=== PATIENT | female | born 1950 | race Caucasian/White ===

== ENCOUNTER 2016-09-30 11:20 | Emergency (ER) | payer OTHER ==
--- NOTE | 2016-09-30 11:25 | EDPHY ---
H & P Constitutional: Initial Vital Signs Heart Rate 105 H 09/30/16 12:00 Respiratory Rate 18 09/30/16 12:00 Blood Pressure 176/130 H 09/30/16 12:00 O2 Sat (%) 90 L 09/30/16 12:00 O2 Delivery Mode Nasal Cannula O2 (L/minute) 2 Allergies/Adverse Reactions: Sulfa (Sulfonamide Antibiotics) Allergy (Verified 09/30/16 12:03) Medical Decision Making ED Course/Re-evaluation: CHIEF COMPLAINT: Right arm pain HISTORY OF PRESENT ILLNESS: 66-year-old female fell on the ice this morning landed on her right upper arm. She has severe upper arm pain. Her shoulder hurts in her elbow hurts also. She denies hitting anything else or any other injuries. She got some intranasal fentanyl in route which did not seem to relieve her pain very much. She is in a sling. REVIEW OF SYSTEMS: A 10 point review of systems was performed and is negative with the exception of the elements mentioned in the history of present illness. PHYSICAL EXAM: HR, BP, O2 Sat, RR. Temp noted General Appearance: Alert, well hydrated, appropriate, and non-toxic appearing. Head: Atraumatic without scalp tenderness or obvious injury Eyes: Pupils equal, round, reactive to light and accommodation, EOMI, no trauma , no injection. Ears: Clear bilaterally, no perforation, normal landmarks Nose: Atraumatic, no rhinorrhea, clear. Throat: There is no erythema or exudates, no lesions, normal tonsils, mucus membranes moist. Neck: Supple, 2+ carotid upstroke, nontender, no lymphadenopathy. Respiratory: No retractions, no distress, no wheezes, and no accessory muscle use. Lungs are clear to auscultation bilaterally. Cardiovascular: Regular rate and rhythm, no murmurs, rubs, or gallops. Bilateral carotid, radial, dorsalis pedis, and posterior tibial pulses intact. Good capillary refill all extremities. Gastrointestinal: Abdomen is soft, nontender, non-distended, no masses, no rebound, no guarding, no peritoneal signs. Musculoskeletal: Significant pain of the right upper extremity mostly of the humerus. The shoulder appears to be well located based on my clinical exam. Otherwise, Normal active ROM of all extremities, atraumatic. Neurological: Alert, appropriate, and interactive. The patient has normal DTRs and non-focal cranial nerves, motor, sensory, and cerebellar exam. Skin: No rashes, good turgor, no nodules on palpation. Past medical history: Noncontributory Past surgical history: Noncontributory Family history: Noncontributory Social history: , does not abuse tobacco drugs or alcohol DIAGNOSTICS/PROCEDURES/CRITICAL CARE TIME: Study: right humerus Indication: Trauma Results: After viewing the images myself on the PACS system. My interpretation of the images is: Comminuted humerus fracture with nondisplaced greater tuberosity fracture. The radiologist interpretation is pending at the time of this dictation. DIFFERENTIAL DIAGNOSIS: The differential diagnosis for the patient's trauma included but was not limited to intracranial injury, long bone and pelvic bone fractures, spinal injury, intra-abdominal injury, and intra-thoracic injury. MEDICAL DECISION MAKING: This patient is having right arm pain which is an isolated injury from her mechanical trip and fall. We are getting her comfortable with pain medicine and getting an x-ray. This patient has a comminuted right humerus fracture in 3 pieces with a nondisplaced fracture through the greater tuberosity also. She is neurovascularly intact. The injury is closed. There is no evidence of compartment syndrome. There is no skin tenting. The joints above and below are normal. I have paged Dr. Nichols at 12:20 p.m. for final plan. The patient's pain is under much better control now. I spoke with Dr. Nichols. He would like me to put this patient in a splint to hold her humerus and he will follow up with her in the office. This does not require surgery certainly at this time. We will do our best to get this patient is splinted and pain under good control. She is here with her . - Data Points Medications Given: Discontinued Medications Hydromorphone HCl (Dilaudid) 0.4 mg IVP EDNOW ONE Stop: 09/30/16 12:07 Last Admin: 09/30/16 12:13 Dose: 0.4 mg Ondansetron HCl (Zofran) 4 mg IVP EDNOW ONE Stop: 09/30/16 12:07 Last Admin: 09/30/16 12:13 Dose: 4 mg Departure - Departure Disposition: Home, Routine, Self-Care Clinical Impression: Comminuted fracture of humerus Qualifiers: Encounter type: initial encounter Fracture type: closed Laterality: right Qualifier Code: (S42.351A) Displaced comminuted fracture of shaft of humerus, right arm, initial encounter for closed fracture Condition: Good Instructions: Arm Fracture in Adults (ED) Referrals: Patient,NotPresent [Primary Care Provider] - As per Instructions Anushka Nichols MD [Medical Doctor] - 5-7 days, call for appt.
[2016-09-30] MEDS ORDERED: HYDROmorphONE/DILAUDID 1 MG/ML SYR ONE (11:43)
[2016-09-30] MEDS ORDERED: ONDANSETRON 4 MG/2 ML VIAL ONE (11:48)
[2016-09-30 12:03] VITALS: RESP 18
[2016-09-30] MEDS ORDERED: HYDROmorphONE/DILAUDID 1 MG/ML SYR IVP ONE ×2 (12:06→12:36)
[2016-09-30] MEDS ORDERED: ONDANSETRON 4 MG/2 ML VIAL IVP ONE (12:06)
--- NOTE | 2016-09-30 12:18 | DX ---
Right Humerus, 2 Views History: Fall. Trauma. Findings: There is a comminuted fracture in the mid diaphysis of the right radius. There is lateral a pex angulation of 30 degrees. Lateral intervening fragment is displaced laterally 2 cm. The distal di aphyseal shaft is displaced laterally 1.5 cm from the proximal diaphyseal shaft. There also appears t o be minimally displaced fracture of the greater tuberosity. Degenerative change is seen in the acrom ioclavicular joint and glenohumeral joint. Impression: 1. Comminuted displaced and angulated fracture of the mid diaphysis of the right humerus as above. 2. Minimally displaced greater tuberosity fracture.
[2016-09-30] MEDS ORDERED: oxyCODONE IR 5 MG TAB ONE (12:55)
[2016-09-30 14:17] VITALS: BP 148/105; PULSE 102; O2SAT 94
== END 2016-09-30 14:16 | disposition home or self-care (01) ==
DX: S42.251A Displaced fracture of greater tuberosity of right humerus, initial encounter for closed fracture (principal); S42.351A Displaced comminuted fracture of shaft of humerus, right arm, initial encounter for closed fracture; W00.0XXA Fall on same level due to ice and snow, initial encounter
CPT/HCPCS: 73060; 96374; 96375; 96376; 99284; J1170; J2405